=== PATIENT | male | born 1965 | race Caucasian/White ===

== ENCOUNTER 2017-07-23 07:21 | Day surgery (SDC) | payer OTHER ==
[2017-07-22 10:39] VITALS: BMI 27.0
[2017-07-23] MEDS ORDERED: PROPOFOL 20 ML ONE ×2 (07:28)
[2017-07-23] MEDS ORDERED: LIDOCAINE HCL/PF 2% SDV 5ML VIAL ONE (07:28)
[2017-07-23 08:52] VITALS: BP 105/73; PULSE 59; TEMP 97.9
== END 2017-07-23 08:52 | disposition home or self-care (01) ==
LOC: FASU-ENDO 07:21
PROVIDERS: ATTEND Internal Medicine Gastroenterology
PROC: 0DJD8ZZ Inspection of Lower Intestinal Tract, Via Natural or Artificial Opening Endoscopic (ICD-10-PCS; principal; 2017-07-23 08:03)
DX: Z12.11 Encounter for screening for malignant neoplasm of colon (principal)

== ENCOUNTER 2019-08-05 07:02 | Emergency (ER) | payer OTHER ==
[2019-08-05 07:28] VITALS: BP 130/98; PULSE 78; TEMP 98; BMI 27.8
--- NOTE | 2019-08-05 08:23 | PDOC ---
Attending Attestation - Resident Resident Name: IvanSuryaAngelaPavelshweta - ED Attending Attestation I have performed the following: I have examined & evaluated the patient, The case was reviewed & discussed with the resident, I agree w/resident's findings & plan - HPI HPI: 08/05/19 08:17 54y/o L hand dominant M p/w R middle finger laceration sustained this morning. Pt sustained laceration on sharp edge of mirror, no broken glass. no paresthesias but feels some pain with ROM. unknown last dT. no other injuries - Physicial Exam PE: 08/05/19 08:21 vss R hand: middle finger with 2.5cm linear palmar laceration over distal portion of middle phalanx. active oozing. brisk cap refill, 5/5 flex/extend of MCP/PIP/ DIP with intact sensation. During flexion of PIP felt "pop" during exam but flexion remained intact against resistant. + deep tissue exposure without visualized tendon injury. No FB. - Medical Decision Making 08/05/19 08:23 54y/o M with deep finger laceration, likely some tendon involvement but not complete. nvi, no evidence of FB. laceration repair will need splint and abx for likely partial tendon involvement update dT hand referral, understands return criteria
--- NOTE | 2019-08-05 08:54 | PDOC ---
History of Present Illness <Nataly Jaquez - Last Filed: 08/05/19 10:48> - History of Present Illness Initial Comments: 08/05/19 08:49 54 y/o M no significant medical hx, presenting to the ED with a laceration to the right middle finger, approx 2.5 hours ago. He was reaching for shaving cream in his cabinet when he grazed his hand on the edge of the mirror hurting himself. He denies any loss of sensation to the affected digit and is able to move it. <Mariza Mays - Last Filed: 08/05/19 12:54> - General Chief Complaint: Laceration Stated Complaint: RIGHT FINGER LACERATION Time Seen by Provider: 08/05/19 07:47 Past History <Nataly Jaquez - Last Filed: 08/05/19 10:48> - Past Medical History Anemia: No Asthma: No Cancer: No Cardiac Disorders: No CVA: No COPD: No CHF: No Dementia: No Diabetes: No GI Disorders: No Disorders: No HTN: No Hypercholesterolemia: No Liver Disease: No Seizures: No Thyroid Disease: No - Surgical History Abdominal Surgery: No Appendectomy: No Cardiac Surgery: No Cholecystectomy: No Lung Surgery: No Neurologic Surgery: No Orthopedic Surgery: Yes (Rotator cuff left shoulder 2014) - Suicide/Smoking/Psychosocial Hx Smoking History: Never smoked Have you smoked in the past 12 months: No Hx Alcohol Use: Yes Drug/Substance Use Hx: No Substance Use Type: Alcohol Hx Substance Use Treatment: No <Mariza Mays - Last Filed: 08/05/19 12:54> - Past Medical History Allergies/Adverse Reactions: Allergies Allergy/AdvReac Type Severity Reaction Status Date / Time No Known Drug Allergies Allergy Verified 08/05/19 07:26 Home Medications: Ambulatory Orders Multivitamin 1 tab PO DAILY 07/22/17 Cephalexin Monohydrate [Keflex -] 250 mg PO Q8H #21 capsule 08/05/19 *Physical Exam - Vital Signs Last Vital Signs Temp Pulse Resp BP Pulse Ox 98.0 F 78 18 130/98 98 08/05/19 07:26 08/05/19 07:26 08/05/19 07:26 08/05/19 07:26 08/05/19 07:26 <Nataly Jaquez - Last Filed: 08/05/19 10:48> - Vital Signs Last Vital Signs Temp Pulse Resp BP Pulse Ox 98.0 F 78 18 130/98 98 08/05/19 07:26 08/05/19 07:26 08/05/19 07:26 08/05/19 07:26 08/05/19 07:26 - Physical Exam General Appearance: Yes: Nourished, Appropriately Dressed. No: Apparent Distress HEENT: positive: Normal Voice, Symmetrical Neck: positive: Trachea midline, Supple Respiratory/Chest: positive: Lungs Clear, Normal Breath Sounds. negative: Chest Tender, Respiratory Distress Cardiovascular: positive: Regular Rhythm, Regular Rate, S1, S2. negative: Edema , JVD Gastrointestinal/Abdominal: positive: Soft. negative: Distended Musculoskeletal: positive: Normal Inspection. negative: CVA Tenderness Extremity: positive: Other (apparently 2-3cm laceration on right middle finger. Tendon can be seen beneath. neurovascularly intact) Neurologic: positive: Fully Oriented, Alert, Normal Mood/Affect, Normal Response <Mariza Mays - Last Filed: 08/05/19 12:54> Procedures - Laceration/Wound Repair Right Hand 3rd digit Wound Length: to 2.5 cm Wound Explored: clean, no foreign body present Wound's Depth, Shape: linear Betadine Prep: No Anesthesia: 2% Lidocaine Amount of Anesthetic (ccs): 6 Wound Repaired With: Sutures Suture Size/Type: 5:0, nylon Number of Sutures: 9 Layer Closure: No Splint Applied: Yes Sling Applied: No <Mariza Mays - Last Filed: 08/05/19 12:54> ED Treatment Course - Medications Given in the ED: ED Medications Discontinued Medications Generic Name Dose Route Start Last Admin Trade Name Freq PRN Reason Stop Dose Admin Diphtheria/Tetanus/Acell Pertussis 0.5 ml 08/05/19 09:13 08/05/19 10:15 Boostrix - IM 08/05/19 09:14 0.5 ml .ONCE ONE Administration Lidocaine HCl 1 mg 08/05/19 09:46 08/05/19 09:50 Xylocaine 2% SQ 08/05/19 09:47 1 mg ONCE ONE Administration <Nataly Jaquez - Last Filed: 08/05/19 10:48> Medical Decision Making - Medical Decision Making 08/05/19 10:56 54y/o M no significant past medical hx. Presenting with laceration to the finger. -Still able to move fingers. Tendon appears minimally affected. Area prepped and draped in sterile fashion. Anesthestized with lidocaine. Irrigated with copious irrigation and explored for foreign body. Sutured with 9 sutures with adequate approximation of wound edges. The wound was then covered with bacitracin and sterile gauze. Instructions given to return in 7 days for suture removal in the ED or with the orthopedic surgeon. 08/05/19 11:05 <Mariza Mays - Last Filed: 08/05/19 12:54> *DC/Admit/Observation/Transfer <Nataly Jaquez - Last Filed: 08/05/19 10:48> <Mariza Mays - Last Filed: 08/05/19 12:54> Diagnosis at time of Disposition: Laceration Laceration of finger Qualifiers: Encounter type: initial encounter Finger: middle finger Damage to nail status: unspecified Foreign body presence: without foreign body Laterality: right Qualified Code(s): S61.212A - Laceration without foreign body of right middle finger without damage to nail, initial encounter Diagnosis at time of Disposition: (Ruled Out): Dehiscence of laceration repair - Discharge Dispostion Disposition: HOME Condition at time of disposition: Stable - Prescriptions Prescriptions: Cephalexin Monohydrate [Keflex -] 250 mg PO Q8H #21 capsule - Referrals Referrals: Celestine Eric MD [Staff Physician] - Jairon Mcclendon MD [Staff Physician] - - Patient Instructions Printed Discharge Instructions: DI for Laceration Repair Additional Instructions: Follow up with your primary care doctor within 48-72 hours for a wound check. We have also included a referral for an orthopedic surgeon Dr. Mcclendon in the next 7-10 days. Keep sutures covered and dry for 24 hours then clean with soap and water daily - do not scrub. Apply bacitracin and cover with gauze. Return to ED for suture removal in 7 days. the orthopedic surgeon can equally take out the sutures in 7 days if you would prefer. Return to the ED for any increased pain, redness, streaking (red lines), swelling, fever or chills. You have been prescribed a course of antibiotics. Use as prescribed and complete treatment.
[2019-08-05] MEDS ORDERED: DIPHTH,PERTUSS(ACELL),TET 0.5 ML DISP.SYRIN IM ONE (09:13)
[2019-08-05] MEDS ORDERED: LIDOCAINE HCL 2% (50ML VIAL) SQ ONE (09:46)
[2019-08-05] MEDS ORDERED: LIDOCAINE HCL 2% (20ML MULTI-DOSE VIAL) NR ONE (09:46)
== END 2019-08-05 11:01 | disposition home or self-care (01) ==
LOC: JER 07:02
PROC: 0HQFXZZ Repair Right Hand Skin, External Approach (ICD-10-PCS; principal; 2019-08-05)
DX: S61.212A Laceration without foreign body of right middle finger without damage to nail, initial encounter (principal); W22.8XXA Striking against or struck by other objects, initial encounter; Y93.89 Activity, other specified; Y92.002 Bathroom of unspecified non-institutional (private) residence as the place of occurrence of the external cause
CPT/HCPCS: 90715; 99281-25